=== PATIENT | female | born 1990 | race Caucasian/White ===

== ENCOUNTER 2024-05-17 18:08 | Emergency (ER) | payer MEDICAID ==
[~2024-05-17] VITALS: Ht 165.1 cm; Wt 75.0 kg
[2024-05-17 18:18] VITALS: O2SAT 99
[2024-05-17 19:05] LABS: BASOPHILS % 0.7 % (0.0-2.0); EOSINOPHILS % 1.1 % (0.0-5.0); HEMATOCRIT. 37.9 % (36.0-48.0); HEMOGLOBIN. 13.2 g/dL (12.0-16.0); LYMPHOCYTES % 16.6 % (20.0-50.0); MEAN CORPUSCULAR HEMOGLOBIN 32.7 pg (28.0-32.0); MEAN CORPUSCULAR HGB CONC 34.8 g/dL (31.0-37.0); MEAN PLATELET VOLUME 8.2 fl (7.4-10.4); MONOCYTES % 14.2 % (2.0-8.0); NEUTROPHILS % 67.4 % (40.0-76.0); PLATELET 212 x1000/uL (130-400); RED BLOOD CELL COUNT 4.03 mill/uL (4.2-5.4); RED CELL DISTRIBUTION WIDTH 13.1 % (11.6-14.6); WHITE BLOOD COUNT 6.4 x1000/uL (4.5-11.0)
[2024-05-17 19:14] LABS: CHLORIDE 106 mEq/L (98-107); POTASSIUM 3.8 mEq/L (3.5-5.1); SODIUM 139 mEq/L (136-145)
[2024-05-17 19:15] LABS: CARBON DIOXIDE 23 mEq/L (21-32)
[2024-05-17 19:16] LABS: CALCIUM 10.3 mg/dL (8.7-10.4)
[2024-05-17 19:20] LABS: CREATININE 0.9 mg/dL (0.6-1.0); GLUCOSE 123 mg/dL (70-105); UREA NITROGEN BLOOD 8 mg/dL (9-23)
[2024-05-17 19:22] LABS: ALANINE AMINOTRANSFERASE 23 IU/L (10-49); ASPARTATE AMINOTRANSFERASE 22 IU/L (<34)
[2024-05-17 19:23] LABS: BILIRUBIN DIRECT < 0.1 mg/dL (<=3.0); BILIRUBIN TOTAL 0.3 mg/dL (0.1-1.0); TROPONIN I HIGH SENSITIVITY < 4 ng/L (3.0-34)
[2024-05-17 19:37] LABS: HCG SCREEN NEGATIVE
[2024-05-17 19:48] LABS: PROTHROMBIN TIME 10.9 sec (9.6-11.0)
[2024-05-17] MEDS ORDERED: ACETAMINOPHEN 325MG TABLET PO ONE (20:30)
[2024-05-18] MEDS: SODIUM CHLORIDE 0.9% 1,000 ML IV ONE (00:18)
[2024-05-18] MEDS: ACETAMINOPHEN 325MG TABLET PO NR (00:19)
[2024-05-18 02:08] VITALS: BP 138/85; PULSE 98; RESP 18; TEMP 37.44744; O2SAT 97
== END 2024-05-18 02:11 | disposition home or self-care (01) ==
LOC: ER 18:08
DX: B34.9 Viral infection, unspecified (principal); R00.0 Tachycardia, unspecified
CPT/HCPCS: 99291; 80076; 80048; 84703; 83690; 85025; 85610; 84484; 36415; 71045; 93005; 96360; J7030